=== PATIENT | male | born 1970 | race Caucasian/White ===

== ENCOUNTER 2017-01-10 22:51 | Emergency (ER) | payer SELFPAY ==
[2017-01-10] MEDS ORDERED: ALBUTEROL SULFATE/IPRATROPIUM 3 ML NEBU IH ONE ×4 (23:00→23:36)
[2017-01-10] MEDS ORDERED: predniSONE 20 MG TABLET PO ONE (23:00)
--- NOTE | 2017-01-10 23:03 | ERNOTE ---
Dyspnea - Date Date of Service: 01/10/17 - General Time Seen by Provider: 01/10/17 22:59 - Immun/Allergies/Home Medications Immunizations: IMMUNIZATION HX Immunizations Up to Date Yes History of Influenza Vaccine No Hx Pneumococcal Vaccination No Allergies/Adverse Reactions: Allergies Penicillins Allergy (Severe, Verified 01/10/17 23:00) Home Medications: HOME MEDICATIONS Melatonin 5 mg PO HS 01/10/17 [Last Taken Unknown] Albuterol Sulfate [Ventolin HFA] 1 puff IH Q6H #1 inhaler 01/11/17 [Last Taken Unknown] predniSONE [Prednisone] 3 tab PO DAILY #9 tab 01/11/17 [Last Taken Unknown] - History of Present Illness Narrative: This is a 46-year-old male who smokes one pack of cigarettes per day. He comes to the emergency Department complaining of progressive shortness of breath. This has been going on for the last several days. He has noted a significant cough for the last several weeks. The patient denies any sputum production. He denies fever or chills. He denies any chest pain. He says this feels like when he gets bronchitis from his lungs. He does have a history of mild COPD. He has not noted any swelling in the legs. He has had no radiation of pain to his neck and jaw or back. He has had no chest pain with this. He does describe a bit of air hunger when he exerts himself or exercises. Nothing seems to make the symptoms better except resting when he exerts himself he gets more short of breath. He has no other complaints. No recent sick contacts. No pleuritic component to the pain Review of Systems - Review of Systems Constitutional: Present: no symptoms reported EYE: Present: no symptoms reported ENT: Present: no symptoms reported Respiratory: Present: shortness of breath, cough Cardiology: Present: no symptoms reported Gastrointestinal/Abdominal: Present: no symptoms reported Genitourinary: Present: no symptoms reported Musculoskeletal: Present: no symptoms reported Skin: Present: no symptoms reported Neurological: Present: no symptoms reported Endocrine: Present: no symptoms reported Hematologic/Lymphatic: Present: no symptoms reported Psych: Present: no symptoms reported All Other Systems: All systems neg except as marked - Patient's Past Medical History Patient History - Medical: Anxiety Patient History - Cardiac/Respiratory: COPD Patient History - Cancer: No Hx of Cancer Patient History - Surgical Procedures: No surgical history Patient History - Other: None - Family History Father Family History - Medical: Renal Failure Family History - Cardiac/Respiratory: CHF - Social History Living Situations: home Abuse History: No History of abuse Psych History: Hx of Anxiety Smoking Status: Current every day smoker Have you smoked in the past 12 months: Yes Do you dip or chew tobacco: No Patient requests Smoking Cessation Consult: No Initiate information on Smoking Cessation: No Alcohol Use: rarely Drug Use: none - Immunizations Immunizations Up to Date: Yes Hx Pneumococcal Vaccination: No History of Influenza Vaccine: No Physical Exam - Physical Exam General Appearance: Present: wd/wn, alert, no apparent distress Head Exam: Present: normal inspection, no evidence of injury Eye Exam: Normal inspection: bilateral, PERRL: bilateral, EOMI: bilateral Ears, Nose, Throat: Present: normal ENT inspection, normal pharynx Neck: Present: normal inspection, nontender Respiratory: Present: other - patient has occasional end expiratory wheezes in bilateral lung conley. I hear no crackles. He has occasional dry cough. No rhonchi Cardiovascular/Chest: Present: regular rate, rhythm, no murmur, normal peripheral pulses Gastrointestinal/Abdominal: Present: normal bowel sounds, nontender, nondistended, soft, no organomegaly Back Exam: Present: normal inspection, no CVA tenderness, no vertebral tenderness Extremity Exam: Present: normal inspection, normal range of motion, no edema Neurological Exam: Present: alert, oriented, normal mood/affect, no motor/ sensory deficits Skin Exam: Present: normal color, warm/dry Lymphatic Exam: Present: no adenopathy ED Progress - Results and Orders Patient's Lab Results:: I have reviewed the patient's lab results. - Vital Signs Patient's Vital Signs:: I have reviewed the patient's vital signs. Vital Signs: Vital Signs 01/10/17 22:54 Temperature 36.8 C Pulse Rate 85 Respiratory 20 Rate Blood Pressure 174/118 O2 Sat by Pulse 94 Oximetry - EKG EKG: NSR EKG read: Interp. by me EKG Comments: EKG normal sinus rhythm at 67 left axis deviation left axis deviation is consistent with pulmonary disease incomplete right bundle branch block no ST segment elevation in no acute T-wave inversion - Progress/Reassessment Chief Complaint: Dyspnea Progress:: Improved Progress Note-Subjective: 01/11/17 00:03 Patient is slightly improved. Still has significant shortness of breath. Chest x-ray is clear for any acute infiltrates although he does scarring and changes consistent with COPD. Troponin is negative. If his symptoms were due to acute coronary syndrome one would've expected his troponin troponin elevated by now as he has had symptoms for 3 days. I think sending this patient home with an albuterol inhaler, prednisone for 5 days, and doxycycline for 10 days for possible COPD would be appropriate. He is already going to talk to his doctor about getting started on medicine to help with smoking cessation. I have counseled him strongly to do this. If he develops new or worrisome symptoms will return. I do not see any acute life-threatening illnesses which need to be addressed at this time. He certainly has no indication of pulmonary embolus and no pleuritic chest pain no swelling no tachycardia. No signs of acute coronary syndrome. No signs of infiltrate. He has a history of COPD. He has findings on his lung exam consistent with COPD. I do not believe further testing is indicated. Departure Clinical Impression: COPD (chronic obstructive pulmonary disease) - Departure Disposition: Home self-care Condition: Stable Instructions: Chronic Obstructive Pulmonary Disease, [id number] Additional Instructions: As we discussed, he should take the prescribed prednisone for 5 days. Use the inhaler as needed to help with breathing. He states prescribed antibiotics for all 10 days. Call your family doctor and set up a follow-up appointment. Certainly if he developed new worrisome symptoms she should return to the emergency department. Prescriptions: Albuterol Sulfate [Ventolin HFA] 1 puff IH Q6H #1 inhaler predniSONE [Prednisone] 3 tab PO DAILY #9 tab
[2017-01-10] MEDS ORDERED: predniSONE 20 MG TABLET ONE (23:06)
[2017-01-10 23:14] LABS: Hematocrit 45.6 % (42.0-52.0); Hemoglobin 15.7 gm/dL (13.5-18.0); Mean Corpuscular Hemoglobin 29.6 pg (27-31); Mean Corpuscular Hgb Conc 34.4 g/dl (32-36); Mean Platelet Volume 11.1 fl (6.0-9.5); Neutrophil # 7.6 K/mm3 (1.3-6.0); Neutrophil % 70.3 % (42-75.0); Platelet Count 272 K/mm3 (150-450); Red Cell Distribution Width 13.3 % (11.5-14.0); White Blood Count 10.8 K/mm3 (4.0-10.5)
[2017-01-10 23:32] LABS: ALT 41 U/L (19-67); AST 23 U/L (0-48); Albumin * 3.7 gm/dl (3.4-5.0); Alkaline Phosphatase * 128 U/L (50-170); Anion Gap 17.5 mmol/L (6.8-13.8); BUN/Creatinine Ratio 15.5 (9.0-21.6); Bilirubin, Total 0.3 mg/dL (0.0-1.1); Blood Urea Nitrogen 17 mg/dL (6-23); Ca. Corrected For Albumin 8.6 mg/dL (8.4-10.2); Calcium * 8.7 mg/dL (7.9-10.9); Carbon Dioxide 21.3 mmol/L (24-32.6); Chloride 105 mmol/L (97-106); Glucose * 151 mg/dL (70-110); Potassium 3.8 mmol/L (3.4-4.6); Sodium 140 mmol/L (132-142)
[2017-01-10 23:33] LABS: Troponin I Less than 0.017 ng/ml (0.00-0.10)
[2017-01-10] MEDS ORDERED: DOXYCYCLINE HYCLATE 100 MG TABLET PO ONE (23:34)
[2017-01-10] MEDS ORDERED: DOXYCYCLINE HYCLATE 100 MG TABLET ONE (23:38)
[2017-01-11] MEDS ORDERED: ALBUTEROL SULFATE/IPRATROPIUM 3 ML NEBU IH ONE ×2 (00:02→00:06)
[2017-01-11 00:24] VITALS: BP 148/80
== END 2017-01-11 00:23 | disposition home or self-care (01) ==
LOC: ER 22:51
DX: J44.9 Chronic obstructive pulmonary disease, unspecified (principal); F17.220 Nicotine dependence, chewing tobacco, uncomplicated